=== PATIENT | female | born 1960 | race African-American/Black ===

== ENCOUNTER 2017-01-30 06:36 | Emergency (ER) | payer MEDICAID ==
[~2017-01-30] VITALS: Ht 162.6 cm; Wt 64.0 kg
[~2017-01-30 06:36] MED LIST: MULT1TAB70 PO; PREN-64 PO; RISP1 PO
[2017-01-30] MEDS ORDERED: FLUO-191 PO (07:00)
[2017-01-30 07:29] VITALS: BP 116/78
[2017-01-30] MEDS ORDERED: ACETAMINOPHEN 500 MG TABLET PO ONE (07:45)
== END 2017-01-30 08:07 | disposition home or self-care (01) ==
LOC: EMS 06:37
DX: M54.5 Low back pain (principal); F17.210 Nicotine dependence, cigarettes, uncomplicated; F14.90 Cocaine use, unspecified, uncomplicated
CPT/HCPCS: 99282

== ENCOUNTER 2017-07-11 19:00 | Inpatient (IN) | payer MEDICAID ==
[~2017-07-11] VITALS: Ht 157.5 cm; Wt 44.1 kg
[~2017-07-11 19:00] MED LIST changes: +FLUO-191 PO; -MULT1TAB70 PO; -PREN-64 PO; -RISP1 PO; +RISP2 PO
[2017-07-11 20:07] VITALS: BP 156/119
[2017-07-11] MEDS ORDERED: CloNIDine HCL 0.1 MG TABLET PO PRN (20:15)
[2017-07-11] MEDS ORDERED: INFLUENZA VIRUS VACCINE QVS 2017-18 (3YR+)/PF 60 MCG/0.5 ML SYRINGE IM ONE (20:30)
[2017-07-11] MEDS: RisperiDONE 2 MG TABLET PO SCH (21:00)
[2017-07-12] MEDS: LORazepam 2 MG TABLET PO PRN (04:17)
[2017-07-12] MEDS: HALOPERIDOL 5 MG TABLET PO PRN (04:17)
[2017-07-12] MEDS: FLUoxetine HCL 20 MG CAPSULE PO SCH (09:03)
[2017-07-12] MEDS: SULFAMETHOX/TRIMETH DS 800-160 MG/TABLET PO SCH ×2 (09:03→17:10)
[2017-07-12] MEDS: RisperiDONE 2 MG TABLET PO SCH ×3 (09:03→21:23)
[2017-07-12 10:46] VITALS: BP 141/93
[2017-07-12 16:14] VITALS: BP 121/76
[2017-07-12] MEDS: SILVER SULFADIAZINE 1% 25 GM CREAM TP SCH (17:00)
[2017-07-13] MEDS: LORazepam 2 MG TABLET PO PRN ×2 (00:30→17:09)
[2017-07-13] MEDS: HALOPERIDOL 5 MG TABLET PO PRN ×2 (00:30→08:38)
[2017-07-13 00:35] VITALS: BP 113/63
[2017-07-13 01:43] LABS: APPEARANCE,URINE CLEAR (CLEAR); BILIRUBIN,URINE NEGATIVE (NEGATIVE); GLUCOSE, URINE (UA) NEGATIVE (NEGATIVE); KETONES,URINE TRACE mg/dL (NEGATIVE); LEUKOCYTE ESTERASE ,URINE NEGATIVE (NEGATIVE); NITRATE,URINE NEGATIVE (NEGATIVE); OCCULT BLOOD,URINE NEGATIVE (NEGATIVE); PH,URINE 7.5 (5.0-8.0); PROTEIN,URINE NEGATIVE (NEGATIVE)
[2017-07-13 06:43] LABS: BASOPHILS # (AUTO) 0.04 K/uL (0.00-0.20); BASOPHILS % (AUTO) 0.5 % (0.0-2.0); EOSINOPHILS # (AUTO) 0.14 K/uL (0.00-0.70); EOSINOPHILS % (AUTO) 1.63 % (1.0-6.0); HEMATOCRIT 30.7 % (36-46); HEMOGLOBIN 10.3 g/dL (12.0-16.0); LYMPHOCYTES # (AUTO) 2.3 K/uL (1.0-4.8); LYMPHOCYTES % (AUTO) 26.1 % (22.0-44.0); MEAN CORPUSCULAR HEMOGLOBIN 30.7 pg (26.0-34.0); MEAN CORPUSCULAR HGB CONC 33.4 G/dL (31.0-37.0); MEAN CORPUSCULAR VOLUME 92 fL (80-100); MONOCYTES # (AUTO) 1.2 K/uL (0.1-1.0); NEUTROPHILS % (AUTO) 57.8 % (40.0-70.0); PLATELET COUNT (AUTO) 304 K/uL (150-450); RED BLOOD CELL COUNT(AUTO) 3.34 MIL/uL (4.00-5.20); RED CELL DISTRIBUTION WIDTH 14.1 % (11.5-14.5)
[2017-07-13 07:10] LABS: ALANINE AMINOTRANSFERASE 40 U/L (12-78); ALBUMIN 2.3 g/dL (3.4-5.0); ALKALINE PHOSPHATASE 110 U/L (46-116); ANION GAP 5 mmol/L (8-16); ASPARTATE AMINOTRANSFERASE 36 U/L (15-37); BILIRUBIN,TOTAL 0.1 mg/dL (0.1-1.0); CALCIUM, TOTAL 8.3 mg/dL (8.8-10.5); CARBON DIOXIDE 30 mmol/L (22-29); CHLORIDE 101 mmol/L (98-107); GLOMERULAR FILTR. RATE CALC > 60 mL/min (>60); GLUCOSE,RANDOM 82 mg/dL (70-110); POTASSIUM 4.1 mmol/L (3.5-5.1); SODIUM SERUM 136 mmol/L (136-145); TOTAL PROTEIN, SERUM 6.4 g/dL (6.4-8.2); UREA NITROGEN, BLOOD 10 mg/dL (7-18)
[2017-07-13] MEDS: RisperiDONE 2 MG TABLET PO SCH (08:38)
[2017-07-13] MEDS: FLUoxetine HCL 20 MG CAPSULE PO SCH (08:38)
[2017-07-13] MEDS: SULFAMETHOX/TRIMETH DS 800-160 MG/TABLET PO SCH ×2 (08:38→17:09)
[2017-07-13 08:58] VITALS: BP 102/53
[2017-07-13] MEDS ORDERED: PALIPERIDONE PALMITATE 234 MG/1.5 ML SYRINGE IM ONE (09:30)
[2017-07-13] MEDS: SILVER SULFADIAZINE 1% 25 GM CREAM TP SCH ×2 (13:43→17:10)
[2017-07-13 16:43] VITALS: BP 115/76
[2017-07-14] MEDS: ZOLPIDEM TARTRATE 10 MG TABLET PO PRN ×2 (00:38→23:05)
[2017-07-14] MEDS: LORazepam 2 MG TABLET PO PRN ×2 (00:38→16:12)
[2017-07-14 00:39] VITALS: BP 135/79
[2017-07-14 08:05] VITALS: BP 109/78
[2017-07-14] MEDS: MULTIVITAMINS WITH MINERALS, THERAPEUTIC TABLET PO SCH (09:12)
[2017-07-14] MEDS: SULFAMETHOX/TRIMETH DS 800-160 MG/TABLET PO SCH ×2 (09:12→16:12)
[2017-07-14] MEDS: FLUoxetine HCL 20 MG CAPSULE PO SCH (09:14)
[2017-07-14] MEDS: SILVER SULFADIAZINE 1% 25 GM CREAM TP SCH ×2 (09:36→16:13)
[2017-07-14 17:46] VITALS: BP 112/71
[2017-07-15] MEDS: LORazepam 2 MG TABLET PO PRN ×3 (00:45→17:06)
[2017-07-15] MEDS: HALOPERIDOL 5 MG TABLET PO PRN ×2 (00:46→08:17)
[2017-07-15] MEDS: SILVER SULFADIAZINE 1% 25 GM CREAM TP SCH ×2 (08:15→17:06)
[2017-07-15] MEDS: FLUoxetine HCL 20 MG CAPSULE PO SCH (08:17)
[2017-07-15] MEDS: SULFAMETHOX/TRIMETH DS 800-160 MG/TABLET PO SCH ×2 (08:17→17:06)
[2017-07-15] MEDS: MULTIVITAMINS WITH MINERALS, THERAPEUTIC TABLET PO SCH (08:17)
[2017-07-15 10:33] VITALS: BP 127/78
[2017-07-15 16:00] VITALS: BP 124/72
[2017-07-15] MEDS: ZOLPIDEM TARTRATE 10 MG TABLET PO PRN (20:37)
[2017-07-16 04:45] VITALS: BP 126/69
[2017-07-16] MEDS: SILVER SULFADIAZINE 1% 25 GM CREAM TP SCH ×2 (09:37→16:19)
[2017-07-16] MEDS: HALOPERIDOL 5 MG TABLET PO PRN (09:37)
[2017-07-16] MEDS: MULTIVITAMINS WITH MINERALS, THERAPEUTIC TABLET PO SCH (09:37)
[2017-07-16] MEDS: FLUoxetine HCL 20 MG CAPSULE PO SCH (09:37)
[2017-07-16] MEDS: SULFAMETHOX/TRIMETH DS 800-160 MG/TABLET PO SCH ×2 (09:37→16:19)
[2017-07-16 13:20] VITALS: BP 115/69
[2017-07-16 16:02] VITALS: BP 123/84
[2017-07-16] MEDS: LORazepam 2 MG TABLET PO PRN (16:18)
[2017-07-17 08:56] VITALS: BP 124/67
[2017-07-17] MEDS: FLUoxetine HCL 20 MG CAPSULE PO SCH (09:08)
[2017-07-17] MEDS: MULTIVITAMINS WITH MINERALS, THERAPEUTIC TABLET PO SCH (09:08)
[2017-07-17] MEDS: LORazepam 2 MG TABLET PO PRN (09:08)
[2017-07-17] MEDS ORDERED: ACETAMINOPHEN 325 MG TABLET PO PRN (11:00)
[2017-07-17] MEDS ORDERED: IBUPROFEN 600 MG TABLET PO PRN (11:00)
[2017-07-17] MEDS: SILVER SULFADIAZINE 1% 25 GM CREAM TP SCH (11:58)
[2017-07-17] MEDS ORDERED: MULT-723 PO (13:14)
== END 2017-07-17 14:30 | disposition home or self-care (01) | DRG 750 ==
LOC: 3EI 19:00
PROVIDERS: ADMIT Psychiatry & Neurology Child & Adolescent Psychiatry; ATTEND Psychiatry & Neurology Child & Adolescent Psychiatry
DX: F25.0 Schizoaffective disorder, bipolar type (principal); F14.10 Cocaine abuse, uncomplicated; D64.9 Anemia, unspecified; F17.200 Nicotine dependence, unspecified, uncomplicated; F12.90 Cannabis use, unspecified, uncomplicated; Z79.899 Other long term (current) drug therapy
CPT/HCPCS: 80074

== ENCOUNTER 2018-11-07 16:27 | Emergency (ER) | payer MEDICAID ==
[~2018-11-07] VITALS: Ht 157.5 cm; Wt 40.5 kg
[~2018-11-07 16:27] MED LIST changes: +MULT-723 PO; -RISP2 PO
[2018-11-07] MEDS ORDERED: [UNRECOGNIZED DRUG - CODE] PO (16:35)
[2018-11-07] MEDS ORDERED: ARIP882S IM (16:35)
[2018-11-07] MEDS ORDERED: IPRATROPIUM BROMIDE 0.5 MG/2.5 ML NEB SOLUTION NEB ONE ×2 (16:45→20:45)
[2018-11-07] MEDS ORDERED: ALBUTEROL SULFATE 2.5 MG/0.5 ML NEB SOLUTION NEB ONE ×2 (16:45→20:45)
[2018-11-07] MEDS ORDERED: MethylPREDNISolone SOD SUCC 125 MG/2 ML VIAL IVP ONE (20:45)
[2018-11-07 21:24] LABS: BASOPHILS % (AUTO) 0.6 % (0.0-2.0); EOSINOPHILS % (AUTO) 6.9 % (1.0-6.0); HEMOGLOBIN 15.1 g/dL (12.0-16.0); LYMPHOCYTES # (AUTO) 1.1 K/uL (1.0-4.8); LYMPHOCYTES % (AUTO) 15.7 % (22.0-44.0); MEAN CORPUSCULAR HEMOGLOBIN 30.2 pg (26.0-34.0); MEAN CORPUSCULAR HGB CONC 32.8 G/dL (31.0-37.0); MEAN CORPUSCULAR VOLUME 92 fL (80-100); MONOCYTES # (AUTO) 0.5 K/uL (0.1-1.0); MONOCYTES % (AUTO) 6.8 % (2.0-9.0); NEUTROPHILS # (AUTO) 4.8 K/uL (1.8-7.7); PLATELET COUNT (AUTO) 185 K/uL (150-450); RED BLOOD CELL COUNT(AUTO) 4.99 MIL/uL (4.00-5.20); RED CELL DISTRIBUTION WIDTH 13.6 % (11.5-14.5)
[2018-11-07] MEDS ORDERED: 0.9% SODIUM CHLORIDE 5 ML NEB SOLUTION NEB ONE (21:42)
[2018-11-07 21:45] LABS: ANION GAP 9 mmol/L (8-16); CALCIUM, TOTAL 9.3 mg/dL (8.8-10.5); CARBON DIOXIDE 32 mmol/L (22-29); CHLORIDE 97 mmol/L (98-107); CREATININE 0.72 mg/dL (0.60-1.30); GLOMERULAR FILTR. RATE CALC > 60 mL/min (>60); GLUCOSE,RANDOM 79 mg/dL (70-110); POTASSIUM 4.4 mmol/L (3.5-5.1); SODIUM SERUM 138 mmol/L (136-145); UREA NITROGEN, BLOOD 8 mg/dL (7-18)
[2018-11-07] MEDS ORDERED: ALBUTEROL SULFATE 5 MG/ML 20 ML NEB SOLN [BULK] NEB ONE (21:45)
[2018-11-07 21:51] LABS: ALANINE AMINOTRANSFERASE 32 U/L (12-78); ALBUMIN 3.5 g/dL (3.4-5.0); ALKALINE PHOSPHATASE 103 U/L (46-116); ASPARTATE AMINOTRANSFERASE 31 U/L (15-37); BILIRUBIN,TOTAL 0.4 mg/dL (0.1-1.0)
[2018-11-07] MEDS ORDERED: ALBUTEROL SULFATE HFA 90 MCG/PUFF 8 GM INHALER IH ONE (23:00)
[2018-11-07 23:44] VITALS: BP 128/67
== END 2018-11-07 23:47 | disposition home or self-care (01) ==
LOC: EMS 16:28
DX: J44.1 Chronic obstructive pulmonary disease with (acute) exacerbation (principal); F32.9 Major depressive disorder, single episode, unspecified; F17.210 Nicotine dependence, cigarettes, uncomplicated; F14.90 Cocaine use, unspecified, uncomplicated; Z79.899 Other long term (current) drug therapy; Z59.0 Homelessness
CPT/HCPCS: 36415; 71045; 80053; 85025; 94640; 94644; 96374; 99285; J2930; J3535

== ENCOUNTER 2023-11-21 12:56 | Emergency (ER) | payer MEDICAID ==
[~2023-11-21] VITALS: Ht 154.9 cm; Wt 52.3 kg
[~2023-11-21 12:56] MED LIST changes: +ARIP882S2 IM; +FLUO-177 PO; -FLUO-191 PO; +[UNRECOGNIZED DRUG - CODE] PO
[2023-11-21] MEDS ORDERED: AMLO-513 PO (13:14)
[2023-11-21] MEDS ORDERED: NALT50TA6 PO (14:26)
[2023-11-21] MEDS ORDERED: BUPR-49 PO (14:26)
[2023-11-21] MEDS: IBUPROFEN 400 MG TABLET PO ONE (14:37)
[2023-11-21] MEDS: ACETAMINOPHEN 325 MG TABLET PO ONE (14:39)
[2023-11-21] MEDS ORDERED: ACET-2247 PO (16:13)
[2023-11-21] MEDS ORDERED: HYDR-4062 PO (16:13)
[2023-11-21] MEDS ORDERED: IBUP-1492 PO (16:13)
[2023-11-21 16:20] VITALS: BP 134/85; PULSE 85; RESP 18; TEMP 98.3
== END 2023-11-21 16:23 | disposition home or self-care (01) ==
LOC: EMS 12:56
DX: S42.021A Displaced fracture of shaft of right clavicle, initial encounter for closed fracture (principal); J45.909 Unspecified asthma, uncomplicated; F17.210 Nicotine dependence, cigarettes, uncomplicated; W17.81XA Fall down embankment (hill), initial encounter; Y93.89 Activity, other specified; Y92.89 Other specified places as the place of occurrence of the external cause; Y99.8 Other external cause status
CPT/HCPCS: 73502; 99284

== ENCOUNTER 2023-12-14 14:50 | Emergency (ER) | payer MEDICAID ==
[~2023-12-14] VITALS: Ht 157.5 cm; Wt 47.7 kg
[~2023-12-14 14:50] MED LIST changes: +ACET-2247 PO; +AMLO-513 PO; -ARIP882S2 IM; +BUPR-49 PO; -FLUO-177 PO; +HYDR-4062 PO; +IBUP-1492 PO; -MULT-723 PO; +NALT50TA6 PO; -[UNRECOGNIZED DRUG - CODE] PO
[2023-12-14 14:55] VITALS: TEMP 98.5
[2023-12-14] MEDS ORDERED: ARIP882S2 IM (14:59)
[2023-12-14] MEDS: HYDROCODONE/ACETAMINOPHEN 5-325 MG TABLET PO ONE (16:36)
[2023-12-14 17:00] VITALS: BP 160/88; PULSE 84; RESP 18
[2023-12-14] MEDS ORDERED: HYDR-4062 PO (17:21)
== END 2023-12-14 17:26 | disposition home or self-care (01) ==
LOC: EMS 14:50
DX: S42.001D Fracture of unspecified part of right clavicle, subsequent encounter for fracture with routine healing (principal); J45.909 Unspecified asthma, uncomplicated; F32.A Depression, unspecified; F17.210 Nicotine dependence, cigarettes, uncomplicated; Z59.00 Homelessness unspecified; Z98.890 Other specified postprocedural states; W19.XXXD Unspecified fall, subsequent encounter
CPT/HCPCS: 99283